=== PATIENT | female | born 1995 | race Caucasian/White ===

== ENCOUNTER 2017-02-05 06:13 | Day surgery (SDC) | payer OTHER ==
--- NOTE | 2017-02-04 10:18 | PREOPHP ---
DATE OF ADMISSION: 02/05/2017 HISTORY OF PRESENT ILLNESS: This is a 21-year-old female, 0, para 0. This patient has seen me on 01/13/2017 due to external genitalia itching and growths like warts that have grown on her ou tside external vulval area and with lots of itching for the last several months, as a result of a re lationship that is not active now. The patient states these multiple warts are growing and are very itchy. PAST MEDICAL HISTORY: Unremarkable. MEDICATIONS: She is on no medication. She is using condoms. FAMILY HISTORY: Hypertension. PHYSICAL EXAMINATION: VITAL SIGNS: Stable, blood pressure 110/70, pulse is 80. She is afebrile. She weighs 218 pounds. She is 5 feet 3 inches. HEAD AND NECK: Normal. BREASTS: Soft, nontender, no masses. CHEST: Clear. HEART: Normal sinus rhythm. BACK: Normal. ABDOMEN: Normal. EXTERNAL GENITALIA: Perianal and perirectal venereal warts over the suprapubic area as well and all the vulvar area, labia minora and majora. The vagina with some warts as well. Uterus normal size, normal cervix, external genitalia otherwise full of venereal warts, and adnexa were negative. RECTAL EXAMINATION: Negative. ASSESSMENT: 1. Multiple venereal warts, external genitalia, vagina, perianal, suprapubic area. She is being ad mitted as an outpatient for a CO2 laser excision and evaporation of multiple venereal warts, due to the extensiveness of the wart infection that needs treatment under anesthesia. The patient has been advised of the possible risks and possible complications of the procedure with her alternatives and options. Written information was provided. 2. She also had an abnormal Pap smear that needed a colposcopy and since we are going to be doing t his procedure, we will do the colposcopy and biopsy at the same time. She agreed to go ahead with t he procedure with full understanding and no more questions. DIAGNOSIS: Multiple external genitalia vulvar area, perianal, suprapubic area, condylomatosis and a bnormal Pap smear, for which she is going to have a CO2 laser excision, evaporation and colposcopy. Dictated By: SHELBIE MOORE/JACLYN Conf#: [id number] [facility]#: [id number]
[2017-02-04 13:36] VITALS: Ht 160 cm; Wt 99.3 kg
[~2017-02-05] VITALS: Ht 160 cm; Wt 99.3 kg
[2017-02-05] MEDS ORDERED: SUCCINYLCHOLINE CHLORIDE 100 MG/5 ML SYG IV ONE (07:00)
[2017-02-05] MEDS ORDERED: LIDOCAINE 2% (SDV) 5 ML INJ ONE (07:00)
[2017-02-05 07:30] VITALS: BP 117/65; PULSE 91; RESP 20
[2017-02-05] MEDS ORDERED: ACETIC ACID 0.25% IRR 1,000 ML BTL IRR SCH (09:00)
[2017-02-05] MEDS ORDERED: PROPOFOL 20 ML ONE (09:48)
[2017-02-05] MEDS ORDERED: CEFAZOLIN 1 GM INJ ONE (09:48)
[2017-02-05] MEDS ORDERED: GLYCOPYRROLATE 0.4 MG INJ ONE (09:48)
[2017-02-05] MEDS ORDERED: NEOSTIGMINE 3 MG/3 ML SYRINGE ONE (09:48)
[2017-02-05] MEDS ORDERED: ROCURONIUM 50 MG INJ ONE (09:48)
[2017-02-05] MEDS ORDERED: DEXAMETHASONE 4 MG/ML 1 ML INJ ONE (09:49)
[2017-02-05] MEDS ORDERED: MIDAZOLAM 1 MG/ML 2 ML INJ ONE (09:49)
[2017-02-05] MEDS ORDERED: ONDANSETRON 4 MG INJ ONE (09:49)
[2017-02-05] MEDS ORDERED: FENTAnyl 50 MCG/ML VIAL ONE ×2 (09:49→10:42)
[2017-02-05] MEDS ORDERED: KETOROLAC 30 MG INJ ONE (10:00)
--- NOTE | 2017-02-05 10:00 | RADRPT ---
PROCEDURE: Chest Radiograph. CLINICAL INDICATION: Preop TECHNIQUE: Single frontal chest radiograph. COMPARISON: None available FINDINGS: The cardiomediastinal silhouette is within normal limits. No infiltrate or effusion is seen. Th e bones are intact. IMPRESSION: 1. Unremarkable chest radiograph. RPTAT: KK .Ole Contreras MD, MD Date Time Electronically viewed and signed by .Ole Contreras MD, on 02/05/2017 10:00 .B/
[2017-02-05] MEDS ORDERED: MIDAZOLAM 1 MG/ML 2 ML INJ IV PRN (10:30)
[2017-02-05] MEDS ORDERED: FENTAnyl 50 MCG/ML VIAL IV PRN ×3 (10:30)
[2017-02-05] MEDS ORDERED: DIPHENHYDRAMINE 50 MG INJ IV PRN (10:30)
[2017-02-05] MEDS ORDERED: EPHEDrine SULFATE 50 MG/5 ML SYG IV PRN (10:30)
[2017-02-05] MEDS ORDERED: HYDROmorphONE (0.2 MG/ML) 10ML SYG IV PRN ×3 (10:30)
[2017-02-05] MEDS ORDERED: TRIMETHOBENZAMIDE 100 MG/ML VIAL IM PRN (10:30)
[2017-02-05] MEDS ORDERED: MEPERIDINE 25 MG INJ IV PRN (10:30)
[2017-02-05] MEDS ORDERED: LABETALOL HCL 20MG INJ IV PRN (10:30)
[2017-02-05] MEDS ORDERED: ONDANSETRON 4 MG INJ IV PRN (10:30)
[2017-02-05] MEDS ORDERED: hydrALAzine 20 MG INJ IV PRN (10:30)
[2017-02-05] MEDS ORDERED: SILVER NITRATE SWAB ONE (10:32)
[2017-02-05] MEDS ORDERED: FERRIC SUBSULFATE 8 GM VIAL TOP SCH (11:00)
[2017-02-05] MEDS ORDERED: BUPIVACAINE 0.5% (SDV) 30 ML INJ ONE (11:00)
[2017-02-05] MEDS ORDERED: NEOMYC/POLYMYX/BACIT 30 GM OINT ONE (11:06)
[2017-02-05] MEDS ORDERED: NEOMYC/POLYMYX/BACIT 3.5GM OPH OINT ONE (11:06)
[2017-02-05 11:14] VITALS: BP 102/58; PULSE 114; RESP 17
[2017-02-05 11:19] VITALS: BP 101/67; PULSE 114; RESP 17
[2017-02-05 11:24] VITALS: BP 97/51; PULSE 116; RESP 16
--- NOTE | 2017-02-05 11:24 | PD.PPDC ---
LANDSCAPE MANAGEMENT TECHNICIAN Discharge Instruction Condition Patient Condition: Good Diet Diet: Resume Regular Diet Activity/Restrictions Activity: Normal Activity May Shower Restrictions: No Exercising No Lifting No Driving No Sexual Activity Nothing in the Vagina No [place] No Tampons, douche Wound/Drain Care Instructions Wound/Drain Care Instructions: Wash with soap and water Keep clean and dry Follow-up Follow-up with Physician: 2, Day/Days Return to clinic for TRANSITION ASSISTANT Instructions: Fever greater than 101 Chills Worsening abdominal pain Excessive Vaginal Bleeding More than 2 pads per hour Unable to tolerate diet Surgical Instructions: Incisional Drainage Incisional Redness SHELBIE DUBOIS MD Feb 05, 2017 11:24
[2017-02-05] MEDS ORDERED: KETOROLAC 30 MG INJ IV PRN (11:30)
[2017-02-05] MEDS ORDERED: HYDROCODONE/APAP (5/325) TAB PO PRN ×2 (11:30)
[2017-02-05 11:55] VITALS: BP 111/61; PULSE 107; RESP 18
--- NOTE | 2017-02-05 11:57 | OPR ---
DATE OF OPERATION: 02/05/2017 PREOPERATIVE DIAGNOSES: Multiple vulvar, perianal, vaginal, abdominal, suprapubic condylomatosis an d ASCUS abnormal Pap smear. POSTOPERATIVE DIAGNOSIS: Multiple vulvar, perianal, vaginal, abdominal, suprapubic condylomatosis a nd ASCUS abnormal Pap smear. PROCEDURE PERFORMED: CO2 laser vaporization of multiple condylomatosis vulvar, perianal, vaginal, a bdominal, suprapubic area and thigh area. Colposcopy. SURGEON: Shelbie Newton MD ANESTHESIOLOGIST: Tacos Jules MD ANESTHESIA: General. COMPLICATIONS: None. DESCRIPTION OF PROCEDURE: The patient was given general anesthesia, placed in the lithotomy positio n. The perineal and vaginal area were prepped and draped. The colposcope was adjusted. A vaginal speculum was applied. The cervix was visualized with the colposcope. There was no major leukoplaki a seen. The T zone was observed with no major changes. I did not see any abnormal vessels and no w dania areas. Biopsy was done at 6 o'clock and at 12 o'clock and ECC was done. The patient was on he r period. The external genitalia was seen with extensive lesions, multiple condylomatosis. One of them was sent for confirmation of diagnosis. CO2 laser at 6 to 8 gross was used with a handheld pi syed to the vulvar area throughout right and left sides, perianal area, thigh area, posterior area, i nguinal area, suprapubic area and abdominal area. The vaporization was done successfully. The nelly ent tolerated the procedure well. ABC ointment was applied. Also Marcaine solution was injected in most areas to prevent pain. The patient left the OR awake and stable. Sponge counts and instrumen t counts were correct. Dictated By: SHELBIE MOORE/NTS Conf#: [id number] DID#: [id number]
--- NOTE | 2017-02-06 17:12 | RADRPT ---
Vent Rate: 85 bpm RR Interval: 0 msec NV Interval: 154 msec QRS Duration: 82 msec QT Interval: 342 msec QTC Interval: 406 msec P-R-T [place]: 26 - 72 - 45 degrees Normal sinus rhythm Normal ECG Electronically Signed By: Dominick Montgomery [id number]
== END 2017-02-05 12:55 | disposition home or self-care (01) ==
LOC: SDS 06:13
PROVIDERS: ATTEND Obstetrics & Gynecology
DX: A63.0 Anogenital (venereal) warts (principal); N72 Inflammatory disease of cervix uteri; E66.9 Obesity, unspecified; Z68.38 Body mass index [BMI] 38.0-38.9, adult
CPT/HCPCS: 57421; 71010; 84703; 88305; 93005; J0330; J0690; J1100; J1885; J2250; J2405; J3010; Z7512; Z7610; J2710